=== PATIENT | male | born 1990 | race Hispanic/Latino ===

== ENCOUNTER 2021-06-29 06:29 | Day surgery (SDC) | payer BC, SELFPAY ==
[2021-06-29] MEDS ORDERED: MORPHINE 4 MG/ML SYR ONE (06:42)
[2021-06-29] MEDS ORDERED: ONDANSETRON 4 MG/2 ML VIAL ONE ×2 (06:42→09:10)
[2021-06-29 07:10] LABS: Basophils % 0.2 % (0-1.3); MPV 9.9 fL (7.6-11.3); RBC Red Blood Cell Count 5.64 M/uL (4.33-5.43)
[2021-06-29 07:20] LABS: Potassium 3.7 mmol/L (3.5-5.1); Sodium Level 139 mmol/L (136-145)
[2021-06-29 07:30] LABS: ALT/SGPT 42 U/L (12-78); AST/SGOT 18 U/L (15-37); Albumin 4.2 g/dL (3.4-5.0); Alkaline Phosphatase 91 U/L (45-117); BUN Blood Urea Nitrogen 11 mg/dL (7-18); Bicarbonate 27 mmol/L (21-32); Bilirubin Direct 0.2 mg/dL (0-0.2); Bilirubin Total 0.6 mg/dL (0.2-1.0); Glucose Level 134 mg/dL (74-106); Lipase 80 U/L (73-393); Protein, Total 7.4 g/dL (6.4-8.2)
--- NOTE | 2021-06-29 07:54 | RAD REPORT ---
EXAM DESCRIPTION: US - Abdomen Exam Limited - 06/29/2021 7:38 am CLINICAL HISTORY: abd pain, r/o gallstone COMPARISON: No comparisons FINDINGS: Multiple shadowing stones are present within the gallbladder. The wall is mildly thickened measuring 4 millimeters. No pericholecystic fluid. Negative sonographic Lorenzana's sign. The common bi le duct measures 4 bold IMPRESSION: Cholelithiasis with mild nonspecific gallbladder wall thickening. The sonographic Lorenzana 's sign was negative though this could be impacted by pain medication if administered. Sonographicall y, this is equivocal for acute cholecystitis.
--- NOTE | 2021-06-29 08:02 | EDPHYS ---
Physician Documentation [facility] Name: Hosea Martinez Age: 30 yrs Sex: Male : 1990 Arrival Date: 06/29/2021 Time: 06:31 Bed 5 Private MD: ED Physician Richelle Hope HPI: 06/29 06:40 This 30 yrs old Male presents to ER via Unassigned with complaints of RUQ jr8 Abdominal Pain. 06:40 The patient presents with abdominal pain in the epigastric area, in the right upper jr8 quadrant. Onset: The symptoms/episode began/occurred acutely, today. The symptoms radiate to right back, the right shoulder. Associated signs and symptoms: Pertinent positives: nausea, vomiting, and diarrhea. The symptoms are described as stabbing. Modifying factors: The symptoms are alleviated by nothing, the symptoms are aggravated by nothing. Severity of pain: At its worst the pain was moderate in the emergency department the pain is unchanged. The patient has not experienced similar symptoms in the past. The patient has not recently seen a physician. Historical: - Allergies: 06:40 No Known Allergies; ss - Home Meds: 06:40 None [Active]; ss - PMHx: 06:40 None; ss - PSHx: 06:40 None; ss - Immunization history:: Client reports receiving the 2nd dose of the Covid vaccine. - Social history:: Smoking status: Patient denies any tobacco usage or history of. ROS: 06:40 Eyes: Negative for injury, pain, redness, and discharge, ENT: Negative for injury, jr8 pain, and discharge, Neck: Negative for injury, pain, and swelling, Cardiovascular: Negative for chest pain, palpitations, and edema, Respiratory: Negative for shortness of breath, cough, wheezing, and pleuritic chest pain, Back: Negative for injury and pain, MS/Extremity: Negative for injury and deformity, Skin: Negative for injury, rash, and discoloration, Neuro: Negative for headache, weakness, numbness, tingling, and seizure. 06:40 Abdomen/GI: Positive for abdominal pain, nausea, vomiting, and diarrhea, Negative for abdominal distension, hematemesis, black/tarry stool, rectal pain, rectal bleeding, bowel incontinence, flatulence. Exam: 06:40 Constitutional: This is a well developed, well nourished patient who is awake, alert, jr8 in obvious pain Cardiovascular: Regular rate and rhythm with a normal S1 and S2. No gallops, murmurs, or rubs. Normal PMI, no JVD. No pulse deficits. Respiratory: Lungs have equal breath sounds bilaterally, clear to auscultation and percussion. No rales, rhonchi or wheezes noted. No increased work of breathing, no retractions or nasal flaring. Back: No spinal tenderness. No costovertebral tenderness. Full range of motion. Skin: Warm, dry with normal turgor. Normal color with no rashes, no lesions, and no evidence of cellulitis. MS/ Extremity: Pulses equal, no cyanosis. Neurovascular intact. Full, normal range of motion. Neuro: Awake and alert, GCS 15, oriented to person, place, time, and situation. Cranial nerves II-XII grossly intact. Motor strength 5/5 in all extremities. Sensory grossly intact. 06:40 Abdomen/GI: Inspection: abdomen appears normal, Bowel sounds: active, all quadrants, Palpation: soft, in all quadrants, moderate abdominal tenderness, in the epigastric area and right upper quadrant, mass, is not appreciated, rebound tenderness, is not appreciated, voluntary guarding, is elicited in the epigastric area, involuntary guarding, is not appreciated, no appreciated organomegaly, Indicators: McBurney's point is not tender, Lorenzana's sign is negative, Liver: tenderness, is not appreciated. 07:14 ECG was reviewed by the Attending Physician. [facility] Vital Signs: 06:39 BP 123 / 97; Pulse 86; Resp 17; Temp 97.8(TE); Pulse Ox 100% on R/A; Weight 102.06 kg; ss Height 5 ft. 10 in. (177.80 cm); Pain 8/10; 06:39 Body Mass Index 32.28 (102.06 kg, 177.80 cm) ss MDM: 06:32 Patient medically screened. [facility] 08:00 Data reviewed: vital signs, nurses notes, lab test result(s), radiologic studies, jr8 ultrasound. Data interpreted: Pulse oximetry: on room air is 100 %. Interpretation: normal. Counseling: I had a detailed discussion with the patient and/or guardian regarding: the historical points, exam findings, and any diagnostic results supporting the discharge/admit diagnosis, lab results, radiology results, the need for further work-up and treatment in the hospital. 06/29 07:06 Order name: Basic Metabolic Panel; Complete Time: 07:35 EDMS 06/29 07:06 Order name: Liver (Hepatic) Function; Complete Time: 07:35 EDMS 06/29 07:06 Order name: Lipase; Complete Time: 07:35 EDMS 06/29 07:06 Order name: CBC with Automated Diff; Complete Time: 08:10 EDMS 06/29 07:10 Order name: Abdomen Exam Limited; Complete Time: 07:57 EDMS 06/29 07:15 Order name: CBC Smear Scan; Complete Time: 08:10 EDMS 06/29 09:21 Order name: SARS-COV-2 RT PCR; Complete Time: 10:16 EDMS 06/29 06:39 Order name: IV Saline Lock; Complete Time: 06:52 jr8 06/29 06:39 Order name: Labs collected and sent; Complete Time: 06:52 jr8 EC:14 Rate is 83 beats/min. Rhythm is regular, Normal Sinus Rhythm. QRS Louisa is Normal. MA jr8 interval is normal at 162 msec. QRS interval is normal at 92 msec. QT interval is normal at 427 msec. No Q waves. T waves are Inverted in lead V3. No ST changes noted. Clinical impression: NSR w/ Non-specific ST/T Changes. Interpreted by me. Administered Medications: 06:50 Drug: Zofran (Ondansetron) 4 mg Route: IVP; Site: right antecubital; tw5 06:52 Drug: morphine 4 mg Route: IVP; Site: right antecubital; tw5 08:31 Drug: Zosyn (piperacillin-tazobactam) 3.375 grams Route: IVPB; Infused Over: 60 mins; ss Site: right antecubital; Disposition: 06/30 05:47 Co-signature as Attending Physician, Richelle Hope MD I agree with the assessment and sp3 plan of care. Disposition Summary: 06/29/21 08:01 Hospitalization Ordered Hospitalization Status: Observation jr8 Location: Telemetry/[facility]Sur (observation) jr8 Condition: Stable jr8 Problem: new jr8 Symptoms: have improved jr8 Bed/Room Type: Standard [facility] Room Assignment: [facility] Provider: Alin Carson(06/29/21 08:02) jr8 Diagnosis - Acute cholecystitis jr8 Forms: - Medication Reconciliation Form jr8 - SBAR form jr8 Signatures: Dispatcher [employer] EDMS Kecia Ramirez RN RN ss Bayron Mathews PA PA jr8 Richelle Hope MD MD sp3 Chanda Johnson tw5 Corrections: (The following items were deleted from the chart) 06/29 07:13 07:10 Abdomen Limited+US.RAD.BRZ ordered. EDMS EDMS 07:17 07:10 CBC+H.LAB.BRZ ordered. EDMS EDMS 07:18 07:10 BASIC METABOLIC PANEL+C.LAB.BRZ ordered. EDMS EDMS 07:18 07:10 HEPATIC FUNCTION+C.LAB.BRZ ordered. EDMS EDMS 07:18 07:10 LIPASE+C.LAB.BRZ ordered. EDMS EDMS 08:02 08:01 Santino Mcfadden jr8 jr8 09:22 08:12 CORONAVIRUS+MR.LAB.BRZ ordered. EDMS EDMS
--- NOTE | 2021-06-29 08:02 | ER ---
Nurse's Notes [facility] Name: Hosea Martinez Age: 30 yrs Sex: Male : 1990 Arrival Date: 06/29/2021 Time: 06:31 Bed 5 Private MD: Diagnosis: Acute cholecystitis Presentation: 06/29 06:39 Chief complaint: Patient states: RUQ pain that began yesterday evening that radiates to ss R shoulder blade. + Nausea. Coronavirus screen: Client denies travel out of the [place] in the last 14 days. Ebola Screen: Patient denies exposure to infectious person. Patient denies travel to an Ebola-affected area in the 21 days before illness onset. Initial Sepsis Screen: Does the patient meet any 2 criteria? No. Patient's initial sepsis screen is negative. Does the patient have a suspected source of infection? No. Patient's initial sepsis screen is negative. Risk Assessment: Do you want to hurt yourself or someone else? Patient reports no desire to harm self or others. Onset of symptoms was June 28, 2021. 06:39 Method Of Arrival: Ambulatory ss 06:39 Acuity: BECKY 3 ss Triage Assessment: 06:52 General: Appears in no apparent distress. Pain: Complains of pain in right upper df1 quadrant. 06:52 General: Behavior is calm, cooperative. EENT: No deficits noted. Neuro: No deficits df1 noted. Cardiovascular: Heart tones present Capillary refill < 3 seconds. Respiratory: Airway is patent Trachea midline Respiratory effort is even, unlabored, Respiratory pattern is regular, symmetrical. GI: Abdomen is non-distended, Bowel sounds present X 4 quads. Abd is soft X 4 quads Abdomen is tender to palpation. : No deficits noted. Derm: No deficits noted. Musculoskeletal: No deficits noted. Historical: - Allergies: 06:40 No Known Allergies; ss - Home Meds: 06:40 None [Active]; ss - PMHx: 06:40 None; ss - PSHx: 06:40 None; ss - Immunization history:: Client reports receiving the 2nd dose of the Covid vaccine. - Social history:: Smoking status: Patient denies any tobacco usage or history of. Screenin:51 Abuse screen: Denies threats or abuse. Nutritional screening: No deficits noted. df1 Tuberculosis screening: No symptoms or risk factors identified. Fall Risk None identified. Assessment: 06:54 Pain: Pain radiates to left mid back Pain began gradually. df1 07:20 Reassessment: Patient is alert, oriented x 3, equal unlabored respirations, skin aa5 warm/dry/pink. Patient states feeling better. Awaiting US, pt notified of wait time. . Pain: Complains of pain in right upper quadrant Pain currently is 4 out of 10 on a pain scale. GI: Patient currently denies nausea. Vital Signs: 06:39 BP 123 / 97; Pulse 86; Resp 17; Temp 97.8(TE); Pulse Ox 100% on R/A; Weight 102.06 kg; ss Height 5 ft. 10 in. (177.80 cm); Pain 8/10; 06:39 Body Mass Index 32.28 (102.06 kg, 177.80 cm) ED Course: 06:31 Patient arrived in ED. wm 06:32 Bayron Mathews PA is PHCP. jr8 06:32 Richelle Hope MD is Attending Physician. jr8 06:40 Chanda Johnson is Primary Nurse. tw5 06:40 Triage completed. ss 06:40 Arm band placed on right wrist. ss 06:48 Initial lab(s) drawn, by me, sent to lab. Inserted saline lock: 20 gauge in right tw5 antecubital area, using aseptic technique. Blood collected. 06:51 Patient has correct armband on for positive identification. Placed in gown. Bed in low df1 position. Call light in reach. Side rails up X 1. threat monitoring analyst on. Pulse ox on. NIBP on. 06:51 No provider procedures requiring assistance completed. Patient maintains SpO2 df1 saturation greater than 95% on room air. 07:37 Abdomen Exam Limited In Process Unspecified. EDMS 08:01 Santino Mcfadden MD is Hospitalizing Provider. jr8 08:02 Alin Carson MD is Hospitalizing Provider. jr8 09:29 Primary Nurse role handed off by Chanda Johnson aa5 Administered Medications: 06:50 Drug: Zofran (Ondansetron) 4 mg Route: IVP; Site: right antecubital; tw5 06:52 Drug: morphine 4 mg Route: IVP; Site: right antecubital; tw5 08:31 Drug: Zosyn (piperacillin-tazobactam) 3.375 grams Route: IVPB; Infused Over: 60 mins; Site: right antecubital; Outcome: 08:01 Decision to Hospitalize by Provider. jr8 10:30 Patient left the ED. bd Signatures: Dispatcher [employer] EDMS Zuri Hope Audri, RN RN aa5 Kecia Ramirez RN RN Bayron Mathews PA PA jr8 Alice Bonner Dawn df1 Chanda Johnson tw5 Corrections: (The following items were deleted from the chart) 09:29 09:29 Patient left the ED. aa5 aa5
[2021-06-29 08:10] LABS: Blood Morphology Comment NOT SEEN (NOT SEEN); Platelet Estimate ADEQ; White Blood Cell Scan OK (OK)
[2021-06-29] MEDS ORDERED: Ringers Lactate 1,000 ML IV ONE ×2 (08:29→10:33)
[2021-06-29] MEDS ORDERED: LIDOCAINE 2% MPF 5 ML VIAL ONE (09:09)
[2021-06-29] MEDS ORDERED: FENTANYL CITR 100 MCG/2 ML ONE ×2 (09:09→10:23)
[2021-06-29] MEDS ORDERED: propofoL 200 MG/20 ML VIAL IV ONE (09:09)
[2021-06-29] MEDS ORDERED: dexAMETHasone 10 MG/ML VIAL ONE (09:09)
[2021-06-29] MEDS ORDERED: ROCURONIUM 50 MG/5 ML VIAL IV ONE (09:09)
[2021-06-29] MEDS ORDERED: KETOROLAC 30 MG/ML INJ ONE (09:10)
[2021-06-29] MEDS ORDERED: MIDAZOLAM HCL 2 MG/2 ML INJ ONE (09:10)
--- NOTE | 2021-06-29 10:03 | HP ---
Date of Admission: 06/29/2021 History Of Present Illness: This is a case of a 30-year-old patient comes to us with epigastric righ t upper quadrant pain started last night after eating some chimichangas. The patient noticed the chioma n to get worse today, come to the ER despite pain medication that they gave him. The pain is still c onstant. So, they called surgical consult for cholecystectomy. He remember his mother has the same episode and she ended up with open cholecystectomy surgery due to rupture gallbladder and that is why he wants to have surgery done during this admission. He denies any dysuria, hematochezia, or melena . Denies any recent traveling out of the country. Denies any family member sick at home. Review of Systems: See H and P. Ten points otherwise unremarkable. Include nausea, vomiting, diarrhea. Allergies: NONE. Medications: None. Medical History: None. Surgeries: None. Social History: He does not smoke. He does not drink alcohol. Physical Examination: General: The patient is awake, alert. HEENT: Pupils are equal and reactive. Anicteric. Neck: Supple. Chest: Clear. Heart: S1, S2. Abdomen: Soft and depressible. Epigastric right upper quadrant pain with Lorenzana sign positive. Rectal: Deferred. Extremities: Good capillary refill. Neurologic: Cranial nerves 2 through 12 grossly normal limits. Laboratory Data: Blood work shows WBC count of 11.3 with hemoglobin of 17.1. Total bilirubin of 0.6 . Lipase 80. Ultrasound of the gallbladder interpreted by Dr. Ortega, cholelithiasis with gallbladder wall thickening. Assessment: This is a 30-year-old patient with acute cholecystitis, symptomatic cholelithiasis. The benefits, alternatives, and risks of laparoscopic possible open cholecystectomy fully explained, whi ch include, but not limited to infection, bleeding, damage to adjacent structures, anesthesia complic ation, choledocholithiasis, bile leak, pancreatitis, myocardial infarction, and . The patient u nderstands this may not relieve any symptoms. He might need well surgical intervention. The patient was booked in OR. DAWN/MODL Voice ID: [id number]
[2021-06-29] MEDS ORDERED: GLYCOPYRROLATE 0.2 MG/ML SYR ONE (10:32)
[2021-06-29] MEDS ORDERED: NEOSTIGMINE 1 MG/ML -5 ML ONE (10:32)
[2021-06-29 11:56] VITALS: O2SAT 100
[2021-06-29 12:54] VITALS: BP 135/82; TEMP 97.2
--- NOTE | 2021-06-29 13:49 | DS ---
Date of Discharge: 06/29/2021 Diagnoses: Acute cholecystitis, symptomatic cholelithiasis. Procedure: Laparoscopic cholecystectomy. Disposition: Home. Activity: As tolerated. No heavy lifting. Plan: Follow up in my office in 1 week. Call for appointment at [phone]. Keep area dry for 48 dari rs, then may shower. Medications: Include Augmentin 875 p.o. q.12, Tylenol No.3 q.4 hours p.r.n. pain, and Zofran 4 q.6 p .r.n. nausea. DAWN/CARA Voice ID: [id number] Report ID: [id number]
--- NOTE | 2021-06-29 13:49 | OP ---
Date of Procedure: 06/29/2021 Surgeon: Alin Carson MD Preoperative Diagnoses: Acute cholecystitis, symptomatic cholelithiasis, right upper quadrant abdomi nal pain. Postoperative Diagnoses: Acute cholecystitis, symptomatic cholelithiasis, right upper quadrant abdom inal pain. Procedure: Laparoscopic cholecystectomy. Anesthesia: General plus local. Complications: None. Findings: Acute cholecystitis. Indication: This is the case of a 30-year-old patient, who comes to us with above diagnoses. Fully explained the benefits, alternatives, and risks of laparoscopic possible open cholecystectomy, which include, but not limited to infection, bleeding, damage to adjacent structures, anesthesia complicati on, choledocholithiasis, bile leak, pancreatitis, LA, and even . He also understands this may n ot relieve any symptoms. He might need more than one surgical intervention. He understood, signed a consent. Procedure In Detail: The patient was brought to the operating room, placed in supine position. Anes thesia was done without complication. Abdominal area was prepped and draped in usual sterile fashion . Marcaine 0.5% was injected for local anesthetic followed by sharp incision of the skin in the infr aumbilical region. Incision was carried down to fascia, which was opened under direct vision. Perit oneum was encountered, opened under direct vision. Vicryl #1 placed inside the fascia. Anai troca r was carefully introduced. Pneumoperitoneum was obtained. I placed 3 more trocars, 5 mm each one o f them, 1 in epigastric area and 2 in the right upper quadrant using same technique, which consisted of local anesthetic, sharp incision of the skin and introduction of the trocars under direct vision. This allowed me to put a grasper in the fundus of the gallbladder, another grasper in the infundibul um, retracting the gallbladder in the inferolateral fashion, exposing the triangle of Calot and obtai malgorzata critical view. The patient's gallbladder was distended. I proceeded and under direct visualiza tion put an Endo needle on the gallbladder fundus and carefully aspirated under direct visualization. After that, needle was removed under direct visualization. Grasper was repositioned. The gallblad yamilet was retracted in the inferolateral fashion exposing the triangle of Calot and obtaining critical view. Cystic duct and cystic artery were clearly isolated, freed circumferentially and a connection between those and the gallbladder were clearly identified. I proceeded to ligate those by using at l east 3 clips proximal, 1 clip distal, ligation in the middle. Same was done with the cystic artery. A small little branch of the cystic artery was also ligated using same technique. Hepatic arteries and common bile duct were protected at all times. The gallbladder was removed from liver using Bovie cauterizer and removed from abdominal cavity using EndoCatch through the umbilical incision. The ar ea was inspected once again. No bile leak. No bleeding. At that moment, I proceeded to remove the trocars under direct vision. Deflated the pneumoperitoneum. Closed the fascia with #1 Vicryl. Irri gated the subcutaneous tissue, closed that with 3-0 chromic and skin in a subcuticular fashion with 3 -0 chromic and then amanda. Sponge count and instrument counts correct. The patient tolerated the procedure well. The patient was sent to recovery in stable condition. DAWN/CARA Voice ID: [id number] Report ID: [id number]
--- NOTE | 2021-07-01 20:45 | EKG ---
Test Date: 2021-06-29 Test Time: 06:45:11 First Aid Attendant: MEASUREMENT RESULTS: Intervals: Rate: 83 VA: 162 QRSD: 92 QT: 364 QTc: 427 [place]: P: 33 VA: 162 QRS: 59 T: 14 INTERPRETIVE STATEMENTS: Normal sinus rhythm Normal ECG No previous ECG available for comparison Electronically Signed On 07-01-21 20:35:59 MAINTENANCE CUSTODIAN by Francisco Anand
== END 2021-06-29 12:50 | disposition home or self-care (01) ==
LOC: ER 06:29 → OR 11:17
PROVIDERS: ATTEND Surgery
PROC: 0FT44ZZ Resection of Gallbladder, Percutaneous Endoscopic Approach (ICD-10-PCS; principal; 2021-06-29 09:45)
DX: K80.12 Calculus of gallbladder with acute and chronic cholecystitis without obstruction (principal); Z20.822 Contact with and (suspected) exposure to COVID-19
CPT/HCPCS: 36415; 76705; 80048; 80076; 83690; 85025; 88304; 93005; 96374; 96375; 99285; J1100; J2250; J2405; J2704; J2710; J3010; J7120; U0003